=== PATIENT | male | born 1990 | race Caucasian/White ===

== ENCOUNTER 2017-08-02 10:12 | Emergency (ER) | payer BC ==
[~2017-08-02] VITALS: Ht 190.5 cm; Wt 122.5 kg
[~2017-08-02 10:12] MED LIST: ALBU6.7H IH; AZIT250T6 PO; PRED20TA PO
[2017-08-02] MEDS ORDERED: PRED50TA PO (10:33)
--- NOTE | 2017-08-02 10:33 | PHYS DOC ---
Past History Past Medical History: Other Past Surgical History: No Surgical History Alcohol Use: Rarely Drug Use: None Adult General Chief Complaint Chief Complaint: COUGH HPI HPI 27-year-old male with a hx of asthma presenting to the emergency department with worsening cough and intermittent sharp moderate pain throughout the chest that is nonradiating worse with coughing and improved with rest. He reports last being treated for an asthma exacerbation about a year ago. He restarted smoking recently and subsequently coughing. The patient denies unilateral leg swelling hemoptysis family or personal history of blood clotting disorders. The pt denies recent immobilization or surgery. Review of systems is negative for fevers chills. He denies abdominal pain nausea vomiting. All other review of systems is negative unless otherwise noted in history of present illness. ED course: 27-year-old male presenting to the emergency department with worsening cough with a history of asthma. Vital signs unremarkable. Pertinent physical exam findings showed diffuse wheezing throughout the lungs with prolonged expiratory phase. X-ray and EKG obtained. Unremarkable. Patient was given a nebulizer along with oral steroids in the emergency department. On reexamination the patient is feeling better. Wheezing has improved. pt subsequently discharged home to follow-up with his PCP. The patient was then discharged home in stable condition to follow up with their primary care physician over the next 2-3 days. They were to return if their symptoms worsened or if they were concerned for any reason. [id number] discharge instructions and return precautions were given. Patient's questions were answered to their satisfaction. Patient is comfortable plan. Review of Systems Review of Systems SEE ABOVE Allergies Allergies Allergies Coded Allergies Type Severity Reaction Last Updated Verified No Known Drug Allergies 07/25/16 No Physical Exam Physical Exam see above Constitutional: Well developed, well nourished, no acute distress, non-toxic appearance. [] HENT: Normocephalic, atraumatic, bilateral external ears normal, oropharynx moist, no oral exudates, nose normal. [] Eyes: PERRLA, EOMI, conjunctiva normal, no discharge. [] Neck: Normal range of motion, no tenderness, supple, no stridor. [] Cardiovascular:Heart rate regular rhythm, no murmur [] Lungs & Thorax: Wheezing present bilaterally with prolonged expiratory phase. No crackles. Abdomen: Bowel sounds normal, soft, no tenderness, no masses, no pulsatile masses. [] Skin: Warm, dry, no erythema, no rash. [] Back: No tenderness, no CVA tenderness. [] Extremities: No tenderness, no cyanosis, no clubbing, ROM intact, no edema. [] Neurologic: Alert and oriented X 3, normal motor function, normal sensory function, no focal deficits noted. [] Psychologic: Affect normal, judgement normal, mood normal. [] EKG EKG [] Radiology/Procedures Radiology/Procedures [] Course & Med Decision Making Course & Med Decision Making Pertinent Labs and Imaging studies reviewed. (See chart for details) [] Dragon Disclaimer Dragon Disclaimer This chart was dictated in whole or in part using Voice Recognition software in a busy, high-work load, and often noisy Emergency Department environment. It may contain unintended and wholly unrecognized errors or omissions. Departure Departure: Impression: Primary Impression: Asthma exacerbation Additional Impression: Asthmatic bronchitis with exacerbation Disposition: HOME, SELF-CARE Condition: STABLE Referrals: PCP,NO (PCP) Patient Instructions: Asthma Attacks, Prevention, Asthma, Adult Additional Instructions: Thank you for allowing us to participate in your care today. Followup with your primary care physician in 3 days if your symptoms do not improve. Call your Primary Doctor tomorrow and inform them of your visit today. If you do not have a primary care provider you can ask for a list of our primary care providers. Return to the emergency department you have any new or concerning findings. This should be evaluated by the primary care physician and any necessary consulting services for continued management within a few days after discharge. Return to emergency room if you have any new or concerning symptoms including but not limited to fever, chills, nausea, vomiting, intractable pain, any new rashes, chest pain, shortness of air, uncontrolled bleeding, difficulty breathing, and/or vision loss. Scripts Prednisone (PREDNISONE) 50 Mg Tablet 1 TAB PO DAILY, #4 TAB You received this medication in the emergency room today. You will starting your next dose tomorrow. Prov: DANY DOBBS MD 08/02/17 Problem Qualifiers DANY DOBBS MD Aug 02, 2017 10:33
[2017-08-02] MEDS ORDERED: IPRATRPIUM/ALBUTEROL 0.5/2.5MG 3 ML NEBU. NEB ONE (10:50)
--- NOTE | 2017-08-02 10:50 | RAD ---
Chest x-ray Indication: Productive cough for a few days. Chest pain. Technique: PA and lateral views of the chest Comparison: Previous study from 07/25/2016 Findings: Heart is normal in size. Lungs are clear. No pneumothorax or pleural effusion. Visualized bony thorax is within normal limits. Impression: No acute cardiopulmonary process.
[2017-08-02] MEDS ORDERED: predniSONE 10 MG TABLET PO ONE (11:00)
[2017-08-02 11:15] VITALS: BP 148/90
[2017-08-02] MEDS ORDERED: ALBU8.5H8 INH (11:17)
--- NOTE | 2017-08-02 19:00 | EKG ---
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
== END 2017-08-02 11:25 | disposition home or self-care (01) ==
LOC: ER 10:12
DX: J45.901 Unspecified asthma with (acute) exacerbation (principal)
CPT/HCPCS: 71020; 93005; 94250; 94640; 99284; J7512; J7620

== ENCOUNTER 2018-02-03 08:22 | Emergency (ER) | payer BC ==
[~2018-02-03 08:22] MED LIST changes: +ALBU8.5H8 INH; +PRED50TA PO
[2018-02-03 08:25] VITALS: BP 145/85
--- NOTE | 2018-02-03 08:41 | PHYS DOC ---
Past History Past Medical History: Asthma, Other Past Surgical History: No Surgical History Alcohol Use: Rarely Drug Use: None Adult General Chief Complaint Chief Complaint: FOOT INJURY PAIN HPI HPI Patient is a 27 year old male who presents with heel pain. He states Tuesday he was walking down his driveway and stepped on a large rock on his heel and twisted his foot. He complains only of heel pain. He's been taking Tylenol and ibuprofen states that he's having to walk on the ball of his foot. His heel hurts too much weight on. He denies any ankle pain or calf pain. Review of Systems Review of Systems Constitutional: Denies fever or chills [] Eyes: Denies change in visual acuity, redness, or eye pain [] HENT: Denies nasal congestion or sore throat [] Respiratory: Denies cough or shortness of breath [] Cardiovascular: No additional information not addressed in HPI [] GI: Denies abdominal pain, nausea, vomiting, bloody stools or diarrhea [] : Denies dysuria or hematuria [] Musculoskeletal: Denies back pain, positive for left heel pain Integument: Denies rash or skin lesions [] Neurologic: Denies headache, focal weakness or sensory changes [] Endocrine: Denies polyuria or polydipsia [] All other systems were reviewed and found to be within normal limits, except as documented in this note. Allergies Allergies Allergies Coded Allergies Type Severity Reaction Last Updated Verified No Known Drug Allergies 07/25/16 No Physical Exam Physical Exam Constitutional: Well developed, well nourished, no acute distress, non-toxic appearance. [] HENT: Normocephalic, atraumatic, bilateral external ears normal, oropharynx moist, no oral exudates, nose normal. [] Eyes: PERRLA, EOMI, conjunctiva normal, no discharge. [] Neck: Normal range of motion, no tenderness, supple, no stridor. [] Cardiovascular:Heart rate regular rhythm, no murmur [] Lungs & Thorax: Bilateral breath sounds clear to auscultation [] Abdomen: Bowel sounds normal, soft, no tenderness, no masses, no pulsatile masses. [] Skin: Warm, dry, no erythema, no rash. [] Back: No tenderness, no CVA tenderness. [] Extremities: Tender palpation under the left heel, no ecchymosis or rashes appreciated, nontender of his ankle and calf on the left lower extremity, no cyanosis, no clubbing, ROM intact, no edema. [] Neurologic: Alert and oriented X 3, normal motor function, normal sensory function, no focal deficits noted. [] Psychologic: Affect normal, judgement normal, mood normal. [] EKG EKG [] Radiology/Procedures Radiology/Procedures [address] [address] IMAGING REPORT Signed PATIENT: ERIKA GARNER ACCOUNT: [id number] : 1990 LOCATION: ER AGE: 27 SEX: M EXAM STATUS: REG ER ORD. PHYSICIAN: BRAD RODRIGUES MD REASON: pain under heel PROCEDURE: FOOT LEFT 3V FOOT LEFT 3V History: Left heel pain, stepped on a rock 3 days ago Comparison: None. Findings: 3 views of the left foot are submitted. No acute fracture or dislocation or radiopaque foreign body is identified. Impression: 1. No acute osseous abnormality or radiopaque foreign body is identified. Electronically signed by: Loretta Truong MD (02/03/2018 9:09 AM) [id number] DICTATED AND SIGNED BY: LORETTA TRUONG MD DATE: 02/03/18907 CC: BRAD RODRIGUES MD; PCP,NO ~ Impressions: Foot Contusion Course & Med Decision Making Course & Med Decision Making Pertinent Labs and Imaging studies reviewed. (See chart for details) Contusion of left foot. Tramadol, return precautions given. Advil 800 mg every 8 hours for 3-4 days. Follow-up primary care if not better within a week. Work note given for 2 days. Dragon Disclaimer Dragon Disclaimer This electronic medical record was generated, in whole or in part, using a voice recognition dictation system. Departure Departure: Impression: Primary Impression: Foot contusion Disposition: 01 HOME, SELF-CARE Condition: STABLE Referrals: PCP,NO (PCP) Patient Instructions: Contusion Additional Instructions: X-rays do not show anything broken. You can use tramadol as needed for pain. You can also use Epsom salt soaks. You can soak your foot in warm water with Epsom salt for 15-20 minutes at a time. You can use tramadol as prescribed for pain. Please be careful if it impair judgment and make you sleepy you should not drive while taking this medicine. He can take 600 mg every 8 hours of Advil for the next 3-4 days. After that you need to go back down to 200 mg every 8 hours. You should rest your foot and try to avoid putting pressure on the heel over the next several days and that should improve by itself. You should follow up with her primary care physician if it has not improved in 5 days. Return to the ER for severe pain, swelling, fevers, or other concerns. Scripts Tramadol Hcl (TRAMADOL HCL) 50 Mg Tablet 50 MG PO PRN Q6HRS Y for PAIN, #20 TAB Prov: BRAD RODRIGUES MD 02/03/18 Problem Qualifiers Primary Impression: Foot contusion Encounter type: initial encounter Laterality: left Qualified Codes: S90.32XA - Contusion of left foot, initial encounter BRAD RODRIGUES MD Feb 03, 2018 08:41
--- NOTE | 2018-02-03 09:12 | RAD ---
FOOT LEFT 3V History: Left heel pain, stepped on a rock 3 days ago Comparison: None. Findings: 3 views of the left foot are submitted. No acute fracture or dislocation or radiopaque foreign body is identified. Impression: 1. No acute osseous abnormality or radiopaque foreign body is identified. Electronically signed by: Star Behtea MD (02/03/2018 9:09 AM) [id number]
[2018-02-03] MEDS ORDERED: TRAM50TA PO ×2 (09:18→09:21)
== END 2018-02-03 09:30 | disposition home or self-care (01) ==
LOC: ER 08:22
DX: S90.32XA Contusion of left foot, initial encounter (principal); J45.909 Unspecified asthma, uncomplicated; W22.8XXA Striking against or struck by other objects, initial encounter; Y93.01 Activity, walking, marching and hiking; Y99.8 Other external cause status; Y92.89 Other specified places as the place of occurrence of the external cause
CPT/HCPCS: 73630; 99284